=== PATIENT | male | born 1965 | race Caucasian/White ===

== ENCOUNTER 2018-10-18 09:34 | Day surgery (SDC) | payer OTHER ==
[2018-10-14 15:18] VITALS: BMI 18.6
[~2018-10-18 09:34] MED LIST: DEXAMETHASONE SOD PHOSPHATE 10 MG/ML 1 ML VIAL IV ONE; HEPARIN SODIUM,PORCINE 5,000 UNIT/ML 1 ML VIAL SQ ONE; HYDROmorphone 0.5 MG/0.5 ML SYRINGE IVP PRN; LACTATED RINGERS 1,000 ML IV SCH; LIDOCAINE 1% 20 ML VIAL (10MG/ML) FOR IV START INTRADERMA PRN; ONDANSETRON 4 MG/2 ML VIAL IVP ONE; SCOPOLAMINE 1.5MG/72HR PATCH TRANSDERM ONE; ceFAZolin IN SWFI 2 GM/20 ML SYRINGE IVP ONE
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
[2018-10-18] MEDS ORDERED: LIDOCAINE 1% INJ 10MG/ML (20 ML MDV) ONE (11:40)
[2018-10-18] MEDS ORDERED: KETOROLAC 30 MG/ML 1 ML VIAL ONE (11:40)
[2018-10-18] MEDS ORDERED: SUCCINYLCHOLINE CHLORIDE 100 MG/5 ML SYR IV ONE (11:40)
[2018-10-18] MEDS ORDERED: fentaNYL (PF) 50 MCG/ML 2 ML AMP ONE (11:40)
[2018-10-18] MEDS ORDERED: PROPOFOL 10 MG/ML 20 ML VIAL IV ONE (11:40)
[2018-10-18] MEDS ORDERED: MIDAZOLAM 2 MG/2 ML VIAL ONE (11:40)
[2018-10-18] MEDS ORDERED: BUPIVACAINE (PF) 0.5% 30 ML VIAL SQ ONE ×2 (12:04→12:31)
[2018-10-18] MEDS ORDERED: LACTATED RINGERS 1,000 ML IV ONE (12:24)
--- NOTE | 2018-10-18 12:39 | P.OP ---
Date of Procedure: 10/18/18 Preoperative Diagnosis: Bilateral recurrent inguinal hernia Postoperative Diagnosis: Bilateral recurrent inguinal hernia Procedure(s) Performed: Open repair of bilateral recurrent hernia Anesthesia: SACHA Surgeon: Cruz Arreola Estimated Blood Loss (ml): 10 Pathology: none sent Condition: stable Disposition: PACU Description of Procedure: IDESCRIPTION OF PROCEDURE: The patient was placed in the supine position after receiving adequate anesthesia. Patients groin was prepped and draped in the usual sterile fashion. The left inguinal hernias repaired first. A standard hernia incision was made and the subcutaneous tissues were divided with electrocautery. The fascia of the external oblique was exposed. A krish the fascia was made with #15 blade. The fascia was then opened with pair of Metzenbaum scissors. A Weitlaner retractor was placed in the wound and the cord structures were grasped and dissected free from the inguinal canal. A rubber [place] drain was placed around the cord structures. The hernial sac was seen on the anterior-medial portion of the cord and this was dissected free from the cord. The hernia sac was then invaginated to the peritoneal cavity. Using blunt finger dissection, the preperitoneal space was dissected and then the Prolene hernial mesh plug was placed into the prepared space. The inferior leaf was expanded. The superior leaf was secured to the pubic tubercle using 2-0 Prolene suture. The lateral portion of the superior leaf was incised and cords tied and secured to the transversalis fascia using 2-0 Prolene suture. Fascia of the external oblique was then closed using #0 Vicryl suture. The Indy drain was removed. The Micheal'ss fascia was then closed with 3-0 Vicryl suture and skin was closed with 3-0 Monocryl. Next, the right inguinal hernia was repaired in identical fashion.. A standard hernia incision was made and the subcutaneous tissues were divided with electrocautery. The fascia of the external oblique was exposed. A krish the fascia was made with #15 blade. The fascia was then opened with pair of Metzenbaum scissors. A Weitlaner retractor was placed in the wound and the cord structures were grasped and dissected free from the inguinal canal. A rubber [place] drain was placed around the cord structures. The hernial sac was seen on the anterior-medial portion of the cord and this was dissected free from the cord. The hernia sac was then invaginated to the peritoneal cavity. Using blunt finger dissection, the preperitoneal space was dissected and then the Prolene hernial mesh plug was placed into the prepared space. The inferior leaf was expanded. The superior leaf was secured to the pubic tubercle using 2- 0 Prolene suture. The lateral portion of the superior leaf was incised and cords tied and secured to the transversalis fascia using 2-0 Prolene suture. Fascia of the external oblique was then closed using #0 Vicryl suture. The [place] drain was removed. The Micheal'ss fascia was then closed with 3-0 Vicryl suture and skin was closed with 3-0 Monocryl. The patient tolerated the procedure well.
[2018-10-18 12:45] VITALS: TEMP 98.6
[2018-10-18 13:25] VITALS: RESP 16
[2018-10-18 14:06] VITALS: BP 158/92; PULSE 73
== END 2018-10-18 14:18 | disposition home or self-care (01) ==
LOC: OR 09:34
PROVIDERS: ATTEND Surgery
DX: K40.21 Bilateral inguinal hernia, without obstruction or gangrene, recurrent (principal); E78.5 Hyperlipidemia, unspecified; I10 Essential (primary) hypertension; K21.9 Gastro-esophageal reflux disease without esophagitis; F17.200 Nicotine dependence, unspecified, uncomplicated; Z79.82 Long term (current) use of aspirin; Z79.899 Other long term (current) drug therapy; Z91.048 Other nonmedicinal substance allergy status; Z83.3 Family history of diabetes mellitus
CPT/HCPCS: 49520; C1781; J2250; J1644; J1100; J2405; J2001; J3010; J1885; J0330; J2704; J0690

== ENCOUNTER 2019-05-31 06:55 | Day surgery (SDC) | payer OTHER ==
[2019-05-27 10:17] VITALS: BMI 19.2
[~2019-05-31 06:55] MED LIST changes: -DEXAMETHASONE SOD PHOSPHATE 10 MG/ML 1 ML VIAL IV ONE; -HEPARIN SODIUM,PORCINE 5,000 UNIT/ML 1 ML VIAL SQ ONE; -HYDROmorphone 0.5 MG/0.5 ML SYRINGE IVP PRN; -ONDANSETRON 4 MG/2 ML VIAL IVP ONE; -SCOPOLAMINE 1.5MG/72HR PATCH TRANSDERM ONE; -ceFAZolin IN SWFI 2 GM/20 ML SYRINGE IVP ONE
[2019-05-31 07:26] VITALS: TEMP 98.9
[2019-05-31] MEDS ORDERED: PROPOFOL 10 MG/ML 20 ML VIAL IV ONE ×2 (07:42→08:18)
[2019-05-31] MEDS ORDERED: LIDOCAINE 1% INJ 10MG/ML (20 ML MDV) ONE ×2 (07:42→08:18)
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
[2019-05-31 08:49] VITALS: BP 155/93; PULSE 81; RESP 17
--- NOTE | 2019-05-31 09:40 | P.OP ---
Date of Procedure: 05/31/19 Preoperative Diagnosis: Screening colonoscopy Postoperative Diagnosis: Rectal polyp External hemorrhoids Diverticulosis Procedure(s) Performed: Colonoscopy Anesthesia: MAC Surgeon: Cruz Arreola Pathology: other (Rectal polyp) Condition: stable Disposition: PACU Description of Procedure: Patient's placed on the endoscopy table in the lateral position. He received IV sedation. Digital rectal exam was performed which revealed external hemorrhoids. The flexible colonoscope was then placed patient anus passed throughout the entire colon. Ileocecal valve was visualized. The cecum, ascending and transverse colon appeared normal. In the descending colon and sigmoid colon is mild diverticular changes. Scope was then brought back the rectum and several small sessile polyps removed with the cold forcep. Scope was then withdrawn withdrawn for patient.
== END 2019-05-31 09:14 | disposition home or self-care (01) ==
LOC: ORWHC2ENDO 06:55
PROVIDERS: ATTEND Surgery
DX: Z12.11 Encounter for screening for malignant neoplasm of colon (principal); K62.1 Rectal polyp; K57.30 Diverticulosis of large intestine without perforation or abscess without bleeding; K64.4 Residual hemorrhoidal skin tags; I10 Essential (primary) hypertension; K21.9 Gastro-esophageal reflux disease without esophagitis; E78.5 Hyperlipidemia, unspecified; Z91.048 Other nonmedicinal substance allergy status; Z79.82 Long term (current) use of aspirin; Z79.899 Other long term (current) drug therapy; Z87.891 Personal history of nicotine dependence; Z83.3 Family history of diabetes mellitus; Z80.42 Family history of malignant neoplasm of prostate
CPT/HCPCS: 88305; 45380; J2001; J2704

== ENCOUNTER → 2022-08-15 | Outpatient (CLI) | payer OTHER ==
--- NOTE | 2022-08-16 10:11 | PE ---
EXAMINATION TYPE: PET CT fusion skull to thigh DATE OF EXAM: 08/15/2022 CLINICAL INDICATION:Male, 56 years old with history of R91.8; TECHNIQUE: Following the intravenous administration of 9.24 mCi of F-18 FDG, whole body images are performed from the skull base to the midthigh. Images are reviewed on the computer in the coronal, a xial, and sagittal planes. Reconstructed rotating images are created on independent workstation and reviewed on the computer. A non-contrast CT is performed in conjunction with the PET scan. Glucose level 126 mg/dL COMPARISON: CT 06/16/2022, PET/CT None, FINDINGS: Mediastinal SUV mean is 1.5. Hepatic parenchyma SUV mean is 2.0. SKULL BASE AND NECK: No suspicious radiotracer activity. CHEST, MEDIASTINUM, AND HILAR REGION: Left upper lobe nodule r-like area measuring up to 15 x 11 mm Max SUV 0.9. There is stable morphology to this lesion compared to prior. No additional suspicious FDG activity within the thorax. ABDOMEN AND PELVIS: No suspicious radiotracer activity. OSSEOUS STRUCTURES: No suspicious radiotracer activity. Degenerative uptake at the right first rib co stochondral junction. OTHER CT: Right palatine tonsil calcifications. Severe emphysema changes including paraseptal and josette trilobular. Right pulmonary hilum partially calcified lymph nodes. Scattered colonic diverticula. Lar ge stool burden in the rectum. Atherosclerosis of the arterial vasculature. IMPRESSION: 1. Left upper lobe nodule with FDG activity at background levels. Findings favor scarring/atelectasi s. Consider surveillance with CT imaging in 3-6 months. 2. Severe emphysema changes.
== END | disposition home or self-care (01) ==
LOC: RADPETMAIN 11:07
PROVIDERS: ATTEND Nurse Practitioner Family
DX: J43.2 Centrilobular emphysema (principal); R91.8 Other nonspecific abnormal finding of lung field
CPT/HCPCS: 78815; A9552

== ENCOUNTER → 2022-11-24 | Outpatient (CLI) | payer OTHER ==
--- NOTE | 2022-11-26 09:17 | CTL ---
EXAMINATION TYPE: CT Low Dose Lung DATE OF EXAM ORDERED: 11/24/2022 HISTORY: R91.8 nonspecific abnormal finding lung field. Current smoker, 36 year history Lung cancer s creening CT DLP: 84.[address] CTDI: 2.2 mGy Automated exposure control for dose reduction was used. SCREENING VISIT: Follow-up COMPARISON: PET CT 08/15/2022, CT low-dose lung cancer screening 06/16/2022 TECHNIQUE: Low dose computed tomography scan was performed through the chest at 1 mm thick sections a nd reconstructed images in multiple planes at 1 mm and [address] DIAGNOSTIC QUALITY: Satisfactory FINDINGS: LUNG NODULES: Stable left upper lobe 1.7 x 1.0 cm nodular density when measuring with similar techniq ue (series 6, image 15). Stable right middle lobe 2 mm pulmonary nodule (series 6, image 48). Calcifi ed granuloma within the right midlung redemonstrated. No new or enlarging pulmonary nodules. LUNGS: COPD: Severity: Moderate to severe Fibrosis: Severity: None Lymph nodes: No pathologically enlarged lymph nodes. Right hilar calcified lymph nodes redemonstrated . Other findings: Linear scarring within the lingula, bilateral lower lobes, and right middle lobe RIGHT PLEURAL SPACE: Effusion: None Calcification: None Thickening: None Pneumothorax: None LEFT PLEURAL SPACE: Effusion: None Calcification: None Thickening: None Pneumothorax: None HEART: Heart Size: Normal Coronary Calcification: None Pericardial Effusion: None OTHER FINDINGS: Upper abdomen: Calcified granulomas redemonstrated within the spleen. Bony thorax: None Supraclavicular region: None Other: None IMPRESSION: 1. Stable 1.7 cm left upper lobe nodular density when measuring with similar technique. This demonst rated FDG activity above background levels on prior PET/CT. Favor scarring. Continued follow-up is re commended. Additional right middle lobe 2 mm pulmonary nodule is stable. No new or enlarging pulmonar y nodules. 2. Sequelae of prior granulomatous disease. 3. Moderate to severe COPD changes. CT LUNG RAD AND CT CHEST RECOMMENDATION: Lung-Rad 2 Benign Appearance or Behavior: Continue annual sc reening with LDCT in 12 months. S Modifier (other clinically significant findings): None
== END | disposition home or self-care (01) ==
LOC: RADCTMAIN 12:50
PROVIDERS: ATTEND Family Medicine
DX: Z12.2 Encounter for screening for malignant neoplasm of respiratory organs (principal); J44.9 Chronic obstructive pulmonary disease, unspecified; L92.9 Granulomatous disorder of the skin and subcutaneous tissue, unspecified; F17.210 Nicotine dependence, cigarettes, uncomplicated; R91.8 Other nonspecific abnormal finding of lung field
CPT/HCPCS: 71271

== ENCOUNTER → 2024-01-11 | Outpatient (CLI) | payer OTHER ==
--- NOTE | 2024-01-11 16:01 | CTL ---
EXAMINATION TYPE: CT Low Dose Lung DATE OF EXAM ORDERED: 01/11/2024 History: Lung cancer screening CT DLP: 83.[address] CTDI: 2.0 mGy Automated exposure control for dose reduction was used. Comparison: 11/24/2022 TECHNIQUE: Low dose computed tomography scan was performed through the chest at 1 mm thick sections a nd reconstructed images in multiple planes at 1 mm and [address] DIAGNOSTIC QUALITY: Satisfactory FINDINGS: There are severe emphysematous changes. There is pleural-parenchymal scarring in the lower lobes with mild bronchiectasis, right greater than left. There is a stable ill-defined 14 mm mass in the left upper lobe. There is a stable 6 - 7 mm nodule in the lingula. There are a few scattered stable sub-5 mm nodules in the right lung. There are calcified right hilar lymph nodes. Great vessels and chest are unremarkable. There is no pleural effusion or pneumothorax. The scanning through the upper abdomen reveals no gross abnormality. No focal osseous lesions are seen. IMPRESSION: 1. Lung RADS category 2 benign findings as described above. Continue routine screening at yearly inte rvals. 2. Severe emphysematous changes as described above. 3. No acute cardiopulmonary disease. [facility], , 01/11/2024 3:58 PM
== END | disposition home or self-care (01) ==
LOC: RADCTMAIN 14:05
PROVIDERS: ATTEND Family Medicine
DX: Z12.2 Encounter for screening for malignant neoplasm of respiratory organs (principal); Z87.891 Personal history of nicotine dependence; J47.9 Bronchiectasis, uncomplicated
CPT/HCPCS: 71271